=== PATIENT | male | born 1955 | race Caucasian/White ===

== ENCOUNTER 2018-02-20 08:47 | Observation (INO) | payer OTHER ==
[~2018-02-20] VITALS: Ht 165.1 cm; Wt 118.7 kg
[2018-02-20] MEDS ORDERED: SODIUM CHLORIDE FLUSH 10ML SYR IVF ONE (09:30)
[2018-02-20] MEDS ORDERED: MORPHINE SULFATE 4 MG/ML, 1ML ONE ×2 (09:39→10:48)
[2018-02-20] MEDS: MORPHINE SULFATE 4 MG/ML, 1ML IVPush PRN ×2 (10:05→10:50)
[2018-02-20 10:33] LABS: BASOPHILS # (AUTO) 0.02 x10^3/uL (0-0.1); BASOPHILS % (AUTO) 0 % (0-1); EOSINOPHILS # (AUTO) 0.16 x10^3/uL (0-0.4); EOSINOPHILS % (AUTO) 2 % (1-7); LYMPHOCYTES % (AUTO) 18 % (22-44); MD NO; MEAN CORPUSCULAR HEMOGLOBIN 27.8 pg (27.5-34.5); MEAN CORPUSCULAR HGB CONC 33.9 g/dL (33.2-36.2); MEAN PLATELET VOLUME 8.7 fL (7.4-10.4); MONOCYTES # (AUTO) 0.57 x10^3/uL (0.2-0.8); MONOCYTES % (AUTO) 8 % (2-9); NEUTROPHILS # (AUTO) 5.34 x10^3/uL (1.8-6.8); NEUTROPHILS % (AUTO) 72 % (42-75); PLATELET COUNT 299 x10^3/uL (130-400); RED BLOOD COUNT 4.73 x10^6/uL (4.38-5.82); RED CELL DISTRIBUTION WIDTH 14.4 % (9.4-14.8)
[2018-02-20 10:43] LABS: ALBUMIN 3.8 g/dL (3.4-5.0); ANION GAP 8 mmol/L (5-15); CALCIUM 9.2 mg/dL (8.5-10.1); CHLORIDE 105 mmol/L (98-107)
[2018-02-20 10:50] LABS: ALANINE AMINOTRANSFERASE 36 U/L (12-78); ALKALINE PHOSPHATASE 84 U/L (45-117); BILIRUBIN,TOTAL 0.6 mg/dL (0.2-1.0); CREATININE 1.74 mg/dL (0.7-1.3); TOTAL PROTEIN 7.7 g/dL (6.4-8.2); TROPONIN I < 0.015 ng/mL (0.000-0.045)
[2018-02-20] MEDS ORDERED: KETOROLAC 30 MG/1 ML IVPush ONE (11:30)
[2018-02-20] MEDS ORDERED: KETOROLAC 30 MG/1 ML ONE (11:31)
[2018-02-20] MEDS ORDERED: MORPHINE SULFATE 4 MG/ML, 1ML IVPush PRN (13:00)
[2018-02-20] MEDS ORDERED: METOCLOPRAMIDE 5 MG/ML, 2ML IVPush ONE (13:00)
[2018-02-20 13:03] LABS: HCT (SEDRATE) 38.7 % (39.2-51.8)
[2018-02-20] MEDS ORDERED: ONDANSETRON 2MG/ML, 2ML IVPush PRN (13:30)
[2018-02-20] MEDS ORDERED: hydrALAzine 20 MG/ML, 1ML IV PRN (13:30)
[2018-02-20] MEDS ORDERED: OMNIPAQUE 350 MG/ML, 100ML BOTTLE ONE (13:51)
[2018-02-20] MEDS: ACETAMINOPHEN 325 MG TABLET PO SCH ×2 (14:11→19:52)
[2018-02-20] MEDS: HEPARIN 5,000 UNITS/ML, 1ML SQ SCH ×2 (14:11→19:52)
[2018-02-20] MEDS: SODIUM CHLORIDE 0.9% 1,000 ML IV SCH (14:11)
[2018-02-20 15:55] VITALS: BP 179/93
[2018-02-20] MEDS: ISOSORBIDE DINITRATE 10 MG TABLET PO SCH ×2 (15:56→19:52)
[2018-02-20] MEDS ORDERED: HYDROmorphone 2MG TABLET PO PRN (17:30)
[2018-02-20 19:47] VITALS: BP 143/71
[2018-02-20] MEDS ORDERED: HYDR50TA3 PO (20:54)
[2018-02-20] MEDS ORDERED: ATOR20TA9 PO (20:55)
[2018-02-20] MEDS ORDERED: CYCL-259 PO (20:55)
[2018-02-20] MEDS ORDERED: HYDR-3343 PO (20:56)
[2018-02-20] MEDS ORDERED: MELO15TA24 PO (20:57)
[2018-02-20] MEDS ORDERED: TAMS-11 PO (20:57)
[2018-02-20] MEDS ORDERED: METO75TA PO (20:59)
[2018-02-21 01:19] VITALS: BP 147/72
[2018-02-21] MEDS: ACETAMINOPHEN 325 MG TABLET PO SCH ×2 (01:26→09:23)
[2018-02-21] MEDS: SODIUM CHLORIDE 0.9% 1,000 ML IV SCH (03:33)
[2018-02-21 05:50] LABS: ANION GAP 9 mmol/L (5-15); CALCIUM 8.8 mg/dL (8.5-10.1); CHLORIDE 104 mmol/L (98-107)
[2018-02-21 05:52] LABS: CREATININE 1.68 mg/dL (0.7-1.3)
[2018-02-21] MEDS: HEPARIN 5,000 UNITS/ML, 1ML SQ SCH (06:14)
[2018-02-21 07:04] VITALS: BP 160/66
[2018-02-21] MEDS ORDERED: ACET325T14 PO (08:54)
[2018-02-21] MEDS ORDERED: ISOS10TA2 PO (08:54)
[2018-02-21] MEDS ORDERED: SENNA/DOCUSATE TABLET PO SCH (09:00)
[2018-02-21] MEDS: ISOSORBIDE DINITRATE 10 MG TABLET PO SCH (09:23)
== END 2018-02-21 13:00 | disposition home or self-care (01) ==
LOC: ED 10:31 → EDIP 12:42 → INTOOBSV 12:42 → 3NE 13:47
PROVIDERS: ADMIT Internal Medicine; ATTEND Internal Medicine
DX: R51 Headache (principal); N17.9 Acute kidney failure, unspecified; I11.9 Hypertensive heart disease without heart failure; I51.7 Cardiomegaly; G47.30 Sleep apnea, unspecified; E66.01 Morbid (severe) obesity due to excess calories; E86.0 Dehydration; J45.909 Unspecified asthma, uncomplicated
CPT/HCPCS: 36415; 36600; 70450; 70496; 71045; 80048; 80053; 82803; 83880; 84484; 85025; 85379; 85651; 93005; 96361; 96372; 96374; 96375; 96376; 99285; G0378; J1644; J1885; J2405; J7030; Q9967